=== PATIENT | male | born 1980 | race African-American/Black ===

== ENCOUNTER 2021-06-06 20:03 | Emergency (ER) | payer OTHER, MEDICARE ==
[~2021-06-06] VITALS: Ht 188 cm; Wt 73.5 kg
[2021-06-06 21:53] VITALS: BP 161/96
[2021-06-06 22:03] LABS: Basophils # (auto) 0 10 ^3/uL (0-0.2); Basophils % (auto) 0.1 % (0.0-2.0); Eosinophils # (auto) 0.1 10 ^3/uL (0-0.8); Eosinophils % (auto) 1.3 % (0.0-7.0); Hematocrit 37.5 % (41.0-53.0); Hemoglobin 13.2 g/dL (13.5-17.5); Lymphocytes # (auto) 1.6 10 ^3/uL (0.4-5.4); Lymphocytes % (auto) 25.9 % (10.0-50.0); Mean Corpuscular Hemoglobin 32.3 pg (28.0-32.0); Mean Corpuscular Hgb Conc. 35.3 g/dL (32.0-36.0); Mean Corpuscular Volume 91.5 fL (80.0-100.0); Monocytes # (auto) 0.4 10 ^3/uL (0-1.3); Neutrophils # (auto) 4.2 10 ^3/uL (1.6-8.6); Neutrophils % (auto) 66.7 % (37.0-80.0); White Blood Cell 6.3 10^3/uL (4.4-10.8)
[2021-06-06 22:20] LABS: Albumin 3.6 g/dL (3.4-5.0); Anion Gap 4 (5-15); Blood Urea Nitrogen 21 mg/dL (7-18); Calcium 8.3 mg/dL (8.5-10.1); Carbon Dioxide 25 mmol/L (21-32); Chloride 108 mmol/L (98-107); Glucose 82 mg/dL (74-106); Potassium 3.8 mmol/L (3.5-5.1); Sodium 137 mmol/L (136-145)
[2021-06-06 22:25] LABS: Alanine Aminotransferase 20 U/L (16-61); Alkaline Phosphatase 99 U/L (45-117); Aspartate Aminotransferase 20 U/L (15-37); BUN/Creatinine Ratio 15.6; Bilirubin, Total 0.4 mg/dL (0.2-1.0); GFR African American 75 mL/min; GFR Non-African American 62 mL/min
== END 2021-06-06 23:34 | disposition home or self-care (01) ==
LOC: ER 20:11
DX: F43.21 Adjustment disorder with depressed mood (principal); R20.2 Paresthesia of skin; I10 Essential (primary) hypertension
CPT/HCPCS: 36415; 70450; 71045; 80053; 83880; 84484; 85025; 93005

== ENCOUNTER 2021-09-06 23:24 | Emergency (ER) | payer OTHER, MEDICARE ==
[~2021-09-06] VITALS: Ht 185.4 cm; Wt 70.8 kg
[2021-09-07] MEDS ORDERED: ACETAMINOPHEN 500 MG TAB PO ONE
[2021-09-07 01:45] VITALS: BP 173/114
== END 2021-09-07 01:50 | disposition home or self-care (01) ==
LOC: ER 23:24
DX: I10 Essential (primary) hypertension (principal); R51.9 Headache, unspecified

== ENCOUNTER 2024-11-13 10:28 | Inpatient (IN) | payer MEDICARE, OTHER ==
[~2024-11-13] VITALS: Ht 185.4 cm; Wt 71.0 kg
[2024-11-13 11:12] LABS: Urine Bacteria None Seen /hpf (None Seen)
--- NOTE | 2024-11-13 11:12 | ED.PDOC ---
History of Present Illness HPI Comments HPI: VITALS: T:97.9 HR:104 RR:18 O2:100 BP:196/100 SOCIAL HX: DENIES TOBACCO USAGE, ETOH CONSUMPTION, OR ILLICIT DRUG USE SHX: DENIES ALL PMHX: LUPUS ALLERGIES: LISINOPRIL Ricky HPI: Poor Historian. 44-year-old male presents to the emergency department for evaluation flu-like symptoms in the last five days. Symptoms include dizziness chills nausea dry mouth chest tightness shortness of breath and insomnia. Denies any sick contacts. REVIEW OF SYSTEMS: CONSTITUTIONAL: Denies acute: fever, diaphoresis, , HEAD: Denies acute: headache, photophobia Eyes: Denies acute: Double vision, vision loss, eye pain, eye discharge. EARS: Denies acute: tinnitus, hearing loss, ear discharge, ear pain, THROAT: Denies acute: sore throat, swelling, difficulty swallowing , pain with swallowing, change in voice. NECK: Denies acute: neck pain, neck swelling, stiff neck. HEART: Denies acute : palpitations, LUNGS: Denies acute: wheezing, cough, hemoptysis ABDOMEN: Denies acute: abdominal pain, Nausea, Vomiting, diarrhea, melena , hematemesis, hematochezia SKIN: Denies acute: rash, redness, lesions, itchiness. EXTREMITIES: Denies acute: calf pain, numbness, tingling, weakness, denies pain in extremity. Denies acute: Low back pain. Neuro: Denies acute: focal neurological deficit, motor or sensory focal neurological deficit, tremors, seizure like activity, confusion, , change in mental status, loss of bowel or bladder function, cauda equina like symptoms. : Denies acute: dysuria, hematuria, flank pain, increase in urinary frequency. PSYCH: Denies acute: hallucination, suicidal ideation, homicidal ideation. PHYSICAL EXAM: General: no acute distress, awake and alert. Head: normocephalic, atraumatic. Neck: supple, trachea is midline, no swelling. Throat: Normal phonation. Eyes:, no erythema, no purulent discharge, no proptosis, no icterus. Heart: regular tachycardic, no significant murmur appreciated. Lungs: no apparent respiratory distress, Able to speak in full sentences. No wheezing, no rhonchi, no crackles. No stridors Clear to auscultation bilaterally. Abdomen: non tender to palpation, non distended, soft, no guarding, no rebound, + bowel sounds. Neuro: Awake, Alert, oriented to name, self, situation, follows commands GCS=15. Speech is normal. Skin: no petechia, no purpura, no cyanosis, non-pale, not jaundice. Lower extremities: --no - Pitting edema no deformity, no focal swelling, no calf TTP. Makes eye contact. moves all four extremities. Face: no apparent facial droop. Ambulating in the ED independently. No nystagmus. No nuchal rigidity, Kernig's sign, Brudzinski's sign, no meningeal signs. Chief Complaint: Dizziness Time Seen by MD: 10:54 Primary Care Provider: CHATA Reviewed Notes: Nurses Notes, Medications, Allergies Allergies: Coded Allergies: NO KNOWN ALLERGIES (Unverified , 09/06/21) Information Source: Patient Mode of Arrival: Ambulatory Severity: Mild Timing: Hours Duration: Since onset Prehospital treatment: None Was a procedure done? Was a procedure done?: No X-Ray, Labs, Meds, VS Vital Signs Date Time Temp Pulse Resp B/P (MAP) Pulse Ox O2 Delivery O2 Flow Rate FiO2 11/13/24 12:06 96 18 175/106 (129) 96 11/13/24 11:55 96 19 95 Room Air* 0 21 11/13/24 11:31 175/106 11/13/24 10:51 107 11/13/24 10:47 99.7 109 18 196/110 (138) 100 Lab Test 11/13/24 12:13 11/13/24 11:13 11/13/24 10:57 11/13/24 10:54 Range/Units Troponin I High Sensitivity Pending 6 </=54 ng/L White Blood Count 6.0 4.4-10.8 10^3/uL Red Blood Count 4.06 L 4.5-5.90 10^6/uL Hemoglobin 12.6 L 13.5-17.5 g/dL Hematocrit 37.4 L 41.0-53.0 % Mean Corpuscular Volume 92.2 80.0-100.0 fL Mean Corpuscular Hemoglobin 31.1 28.0-32.0 pg Mean Corpuscular Hemoglobin Concent 33.7 32.0-36.0 g/dL Red Cell Distribution Width 12.8 11.8-14.3 % Platelet Count 382 140-450 10^3/uL Mean Platelet Volume 7.0 6.9-10.8 fL Neutrophils (%) (Auto) 83.4 H 37.0-80.0 % Lymphocytes (%) (Auto) 11.1 10.0-50.0 % Monocytes (%) (Auto) 5.1 0.0-12.0 % Eosinophils (%) (Auto) 0.0 0.0-7.0 % Basophils (%) (Auto) 0.4 0.0-2.0 % Neutrophils # (Auto) 5.0 1.6-8.6 10 ^3/uL Lymphocytes # (Auto) 0.7 0.4-5.4 10 ^3/uL Monocytes # (Auto) 0.3 0-1.3 10 ^3/uL Eosinophils # (Auto) 0 0-0.8 10 ^3/uL Basophils # (Auto) 0 0-0.2 10 ^3/uL Nucleated Red Blood Cells 0.1 % D-Dimer, Quantitative 1.23 H 0.0-0.49 mg/L FEU Sodium Level 134 L 136-145 mmol/L Potassium Level 3.5 3.5-5.1 mmol/L Chloride Level 103 98-107 mmol/L Carbon Dioxide Level 23 20-31 mmol/L Anion Gap 8 5-15 Blood Urea Nitrogen 11 9-23 mg/dL Creatinine 1.40 H 0.700-1.30 mg/dL Glomerular Filtration Rate Calc 64 >90 mL/min BUN/Creatinine Ratio 7.9 L 10.0-20.0 Serum Glucose 120 H 74-106 mg/dL Lactic Acid Level 1.9 0.4-2.0 mmol/L Calcium Level 9.5 8.7-10.4 mg/dL Magnesium Level 1.9 1.6-2.6 mg/dL Total Bilirubin 0.4 0.2-1.0 mg/dL Aspartate Amino Transferase (AST) 23 13-40 U/L Alanine Aminotransferase (ALT) 16 7-40 U/L Alkaline Phosphatase 96 46-116 U/L B-Type Natriuretic Peptide 35.17 0-100 pg/mL Total Protein 9.8 H 5.7-8.2 g/dL Albumin 3.9 3.2-4.8 g/dL Thyroid Stimulating Hormone (TSH) 2.86 0.55-4.78 uIU/mL Urine Color Light-yellow Yellow Urine Clarity Clear Clear Urine pH 5.5 5.0-9.0 Urine Specific [place] 1.014 1.001-1.035 Urine Protein 1+ H Negative Urine Ketones Negative Negative Urine Blood 1+ H Negative /uL Urine Nitrite Negative Negative Urine Bilirubin Negative Negative Urine Urobilinogen Normal Negative mg/dL Urine Leukocyte Esterase Negative Negative /uL Urine RBC 1 0 - 3 /hpf Urine WBC 1 0 - 3 /hpf Urine Squamous Epithelial Cells None seen <5 /hpf Urine Bacteria None seen None Seen /hpf Urine Hyaline Casts Few 0 - 2 /lpf Urine Glucose Normal Normal mg/dL Influenza Type A Antigen Negative Negative Influenza Type B Antigen Negative Negative SARS-CoV-2 Antigen (Rapid) Negative NEGATIVE Current Medications Medications (Trade) Dose Ordered Sig/[place] Route Start Time Stop Time Status Last Admin Ondansetron HCl (Zofran) 8 mg ONCE ONCE IV 11/13/24 11:00 11/13/24 11:02 DC 11/13/24 11:24 Nitroglycerin (Ntrostat Sublingual) 0.4 mg ONCE ONCE SL 11/13/24 11:00 11/13/24 11:02 DC 11/13/24 11:31 Acetaminophen (Tylenol Tablet) 650 mg ONCE ONCE PO 11/13/24 12:00 11/13/24 12:01 DC 11/13/24 12:03 [place] [address] Ph: [phone] DIAGNOSTIC IMAGING Diagnostic Imaging Report : [id number] Signed PATIENT: AUSTIN OTOOLE ACCT: [id number] UNIT: [id number] : 1980 LOC: ER ROOM / BED: / AGE / SEX: 44 / M ADM STATUS: REG ER SERVICE 1058 ORDERING PHYSICIAN: JAYRO LEWIS DO PROCEDURE(s): CXRP - CHEST PORTABLE REASON: sob/dizzy/weak ORDER NUMBER(s): [id number], ACCESSION NUMBER(s): [id number] CHEST RADIOGRAPH Indication: sob/dizzy/weak Technique: Single frontal view of the chest was obtained COMPARISON: CHEST PORTABLE on DOS: 06/06/21 FINDINGS: Lines and Tubes: None Lungs: Clear Pleura: No effusion. No pneumothorax. Cardiomediastinal contours: Unremarkable Bones: Unremarkable IMPRESSION: 1. No acute disease. ATED BY: AUGUSTA THORNE MD DICTATED DATE/TIME: 11/13/241124 SIGNED BY: AUGUSTA THORNE MD SIGNED DATE/TIME: 11/13/241124 CC: Time of 1ST Reevaluation: 10:24 Reevaluation 1ST: Unchanged Patient Education/Counseling: Diagnosis, Treatment Family Education/Counseling: No Family Present Comments Patient presented with 44-year-old male presents to the emergency department for evaluation flu-like symptoms in the last five days. Patient was found with the above mentioned diagnosis. the following medications were ordered: NS1L, ZOFRAN, NITROGLYCERIN the following tests were ordered: EKG, CXR, LABS, Patient ED course and VS have been stabilized. Patient has been reassessed in the ED and remained in a stable condition. Pertinent incidental findings were discussed with the patient and/or family. Patient/family voices understanding and is agreeable with plan. Patient has been observed in the ED adequate length of time to insure improvement/stability. Escalation of care considered: Consideration of escalation to observation or admission Patient was ADMITTED to the medicine team for further evaluation and treatment of their presentation. All the reports of any imaging studies that were ordered by myself were reviewed by myself. Patient was noted to have abnormal EKG. He was hypertensive here in the ED not take any blood pressure medications. He has some associated chest pressure tightness. Patient has a risk factor of lupus. Departure 1 Departure Time of Disposition: 13:16 Impression: Primary Impression: Abnormal EKG Additional Impressions: Hypertension Chest pain Disposition: ADMITTED INPATIENT Admit to: Tele Condition: Guarded Additional Instructions: [address] [address] Ph: [phone] DIAGNOSTIC IMAGING Diagnostic Imaging Report : [id number] Signed PATIENT: AUSTIN OTOOLE ACCT: [id number] UNIT: [id number] : 1980 LOC: ER ROOM / BED: / AGE / SEX: 44 / M ADM STATUS: REG ER SERVICE 1058 ORDERING PHYSICIAN: JAYRO LEWIS DO PROCEDURE(s): CXRP - CHEST PORTABLE REASON: sob/dizzy/weak ORDER NUMBER(s): [id number], ACCESSION NUMBER(s): [id number] CHEST RADIOGRAPH Indication: sob/dizzy/weak Technique: Single frontal view of the chest was obtained COMPARISON: CHEST PORTABLE on DOS: 06/06/21 FINDINGS: Lines and Tubes: None Lungs: Clear Pleura: No effusion. No pneumothorax. Cardiomediastinal contours: Unremarkable Bones: Unremarkable IMPRESSION: 1. No acute disease. ATED BY: AUGUSTA THORNE MD DICTATED DATE/TIME: 11/13/241124 SIGNED BY: AUGUSTA THORNE MD SIGNED DATE/TIME: 11/13/241124 CC: Discharged With: Self Critical Care Note Critical Care Time?: No Stability Stability form required: No I personally scribed for JAYRO LEWIS DO ([email or web address]) on 11/13/24 at 11:12. Electronically submitted by Babs Larson ([email or web address]). I personally scribed for JAYRO LEWIS DO ([email or web address]) on 11/13/24 at 11:18. Electronically submitted by Babs Larson ([email or web address]). I personally scribed for JAYRO LEWIS DO ([email or web address]) on 11/13/24 at 11:31. Electronically submitted by Babs Larson ([email or web address]). I personally scribed for JAYRO LEWIS DO ([email or web address]) on 11/13/24 at 11:35. Electronically submitted by Babs Larson ([email or web address]). I personally scribed for JAYRO LEWIS DO ([email or web address]) on 11/13/24 at 11:46. El ectronically submitted by Babs Larson [email or web address]). JAYRO LEWIS DO Nov 13, 2024 11:12
[2024-11-13 11:23] LABS: Urine Blood 1+ /uL (Negative); Urine Clarity Clear (Clear); Urine Color Light-Yellow (Yellow); Urine Hyaline Cast FEW /lpf (0 - 2); Urine Protein, UAD 1+ (Negative); Urine Specific Gravity 1.014 (1.001-1.035); Urine Squamous Epithelial Cell None Seen /hpf (<5); Urine Urobilinogen Normal (Negative); Urine WBC 1 /hpf (0 - 3); Urine pH 5.5 (5.0-9.0)
[2024-11-13] MEDS: ONDANSETRON HCL 4 MG/2 ML VIAL IV ONE (11:24)
--- NOTE | 2024-11-13 11:28 | DVH ---
CHEST RADIOGRAPH Indication: sob/dizzy/weak Technique: Single frontal view of the chest was obtained COMPARISON: CHEST PORTABLE on DOS: 06/06/21 FINDINGS: Lines and Tubes: None Lungs: Clear Pleura: No effusion. No pneumothorax. Cardiomediastinal contours: Unremarkable Bones: Unremarkable IMPRESSION: 1. No acute disease.
[2024-11-13 11:30] LABS: Basophils # (auto) 0 10 ^3/uL (0-0.2); Basophils % (auto) 0.4 % (0.0-2.0); Eosinophils # (auto) 0 10 ^3/uL (0-0.8); Hematocrit 37.4 % (41.0-53.0); Hemoglobin 12.6 g/dL (13.5-17.5); Lymphocytes # (auto) 0.7 10 ^3/uL (0.4-5.4); Lymphocytes % (auto) 11.1 % (10.0-50.0); Mean Corpuscular Hemoglobin 31.1 pg (28.0-32.0); Mean Corpuscular Hgb Conc. 33.7 g/dL (32.0-36.0); Mean Corpuscular Volume 92.2 fL (80.0-100.0); Monocytes # (auto) 0.3 10 ^3/uL (0-1.3); Monocytes % (auto) 5.1 % (0.0-12.0); Neutrophils % (auto) 83.4 % (37.0-80.0); Nucleated Red Blood Cells % 0.1 %; Platelet Count (auto) 382 10^3/uL (140-450); Red Blood Cells 4.06 10^6/uL (4.5-5.90); Red Cell Distribution Width 12.8 % (11.8-14.3)
[2024-11-13] MEDS: NITROGLYCERIN 0.4 MG SL TAB SL ONE (11:31)
[2024-11-13 11:32] LABS: Rapid Influenza A Negative (Negative); Rapid Influenza B Negative (Negative)
[2024-11-13 11:34] LABS: COVID19 ANTIGEN SOFIA FIA NEGATIVE (NEGATIVE)
[2024-11-13 11:45] LABS: Alanine Aminotransferase 16 U/L (7-40); Albumin 3.9 g/dL (3.2-4.8); Alkaline Phosphatase 96 U/L (46-116); Anion Gap 8 (5-15); Aspartate Aminotransferase 23 U/L (13-40); BUN/Creatinine Ratio 7.9 (10.0-20.0); Blood Urea Nitrogen 11 mg/dL (9-23); Calcium 9.5 mg/dL (8.7-10.4); Carbon Dioxide 23 mmol/L (20-31); Chloride 103 mmol/L (98-107); Magnesium 1.9 mg/dL (1.6-2.6)
[2024-11-13 11:46] LABS: Bilirubin, Total 0.4 mg/dL (0.2-1.0)
[2024-11-13 11:55] VITALS: PULSE 96; RESP 19; O2SAT 95
[2024-11-13] MEDS: SODIUM CHLORIDE 0.9% 1,000 ML IV ONE (12:01)
[2024-11-13 12:03] LABS: Glucose 120 mg/dL (74-106); Potassium 3.5 mmol/L (3.5-5.1); Sodium 134 mmol/L (136-145); Total Protein 9.8 g/dL (5.7-8.2)
[2024-11-13] MEDS: ACETAMINOPHEN 325 MG TAB PO ONE (12:03)
[2024-11-13] MEDS: ASPirin 325 MG TAB PO ONE (14:44)
[2024-11-13] MEDS: LABETALOL HCL 20 MG/4 ML VL IV ONE ×2 (15:25→20:32)
[2024-11-13 18:30] VITALS: PULSE 85; RESP 14; O2SAT 100
[2024-11-13] MEDS ORDERED: ACETAMINOPHEN 325 MG TAB PO PRN (20:30)
[2024-11-13] MEDS ORDERED: HYDROcodone-ACET 5/325MG TAB PO PRN (20:30)
[2024-11-13] MEDS: SODIUM CHLORIDE 0.9% 1,000 ML IV SCH (20:30)
[2024-11-13] MEDS ORDERED: DOCUSATE SOD 100 MG CAP PO PRN (20:30)
[2024-11-13] MEDS ORDERED: ONDANSETRON HCL 4 MG/2 ML VIAL IV PRN (20:30)
--- NOTE | 2024-11-13 21:29 | DVH ---
EXAM: CT CHEST WITHOUT CONTRAST History: Elevated D-dimer Comparison Study: HEAD WITHOUT CONTRAST on DOS: 06/06/21 TECHNIQUE: Multidetector CT of the chest was performed. Imaging was performed without IV contrast. Ax ial, coronal, and sagittal multiplanar reformats were obtained from the axial data set by the technol ogleyda. Radiation Dose : CTDI vol 6.21 mGy, DLP 253.31 mGy*cm. Findings: Lungs: The lungs are clear. Pleura: Unremarkable Heart/Great vessels: The visualized heart is unremarkable. No cardiomegaly or pericardial effusion. Mediastinum: Unremarkable Soft tissues/Bones: Unremarkable Multiple enlarged bilateral axillary and supraclavicular nodes. Prominent retroperitoneal and retrocr ural nodes. The partially visualized upper abdomen is within normal limits. Impression: 1. No acute cardiopulmonary disease. 2. Multiple enlarged bilateral axillary and supraclavicular nodes as well as prominent retroperitonea l and retrocrural nodes are suspicious for lymphomatous involvement. The axillary nodes are amenable to tissue sampling.
--- NOTE | 2024-11-13 22:39 | DVHHP2 ---
History of Present Illness Reason for Visit: Hypertensive urgency History of Present Illness The patient is a 44-year-old male with past medical history of lupus who presented to [facility] ED with complaint of dizziness. Patient reports symptoms progressively get worse with chills, nausea, chest tightness, shortness of breath, insomnia getting worse that prompted this visit. Patient was seen and evaluated in the ED, laboratory data shows WBC 6.0, platelets 382, sodium 134, potassium 3.5, BUN 11, creatinine 1.40, GFR 64, glucose 120, BNP 35.17, troponin 7, protein 8.3, TSH 2.86, D-dimer 1.23, lactic acid 1.9, blood pressure 194/103 trending down to 132/84, heart rate 80, temperature 98.1 F, O2 saturation 99% on oxygen. Patient was given labetalol 5 mg IV x1, please see medication orders section in the computer. On my assessment, patient denied chest pain, no headache, no dizziness, no diaphoresis, no shortness of breath, no nausea, vomiting, no fever, no chills. Patient was admitted for further evaluation and medical management. Past Medical History Lupus Past Surgical History Denies all surgeries Family History Reviewed, noncontributory to the management of this case. Past Social History The patient lives at home, denies smoking, alcohol or illicit drugs abuse. Review of Systems Constitutional: Yes: Weakness; No: Fever, Chills, Sweats, Malaise, Other Eyes: No: Pain, Vision change, Conjunctivae inflammation, Eyelid inflammation, Other, Redness ENT: No: Ear pain, Ear discharge, Nose pain, Nose discharge, Nose congestion, Mouth pain, Mouth swelling, Throat pain, Throat swelling, Other Respiratory: No: Cough, Dry, Shortness of breath, SOB with excertion, Wheezing, Hemoptysis, Pleuritic Pain, Sputum, Wheezing, Other Cardiovascular: No: Chest Pain, Palpitations, Orthopnea, Paroxysmal Noc. Dyspnea, Edema, Lt Headedness, Other Gastrointestinal: No: Nausea, Vomiting, Abdominal Pain, Diarrhea, Constipation, Melena, Hematochezia, Other Genitourinary: No Dysuria, No Frequency, No Incontinence, No Hematuria, No Retention, No Other Musculoskeletal: No: other, neck pain, shoulder pain, arm pain, back pain, hand pain, leg pain, foot pain Skin: No: Rash, Lesions, Jaundice, Bruising, Other Neurological: No: Weakness, Numbness, Incoordination, Change in speech, Confusion, Seizures, Other Allergies: Coded Allergies: NO KNOWN ALLERGIES (Unverified , 09/06/21) Medications Current Medications Medications Dose Ordered Sig/[place] Route Start Time Stop Time Status Last Admin Dose Admin Aspirin 81 mg DAILY PO 11/14/24 10:00 Carvedilol 12.5 mg Q12HR PO 11/13/24 22:00 Hydralazine HCl 10 mg Q6HP PRN IV 11/13/24 20:30 Amlodipine Besylate 5 mg DAILY PO 11/14/24 10:00 Sodium Chloride 1,000 ml @ 60 mls/hr [id number] IV 11/13/24 20:30 Acetaminophen/ Hydrocodone Bitart 1 tab Q4HP PRN PO 11/13/24 20:30 Ondansetron HCl 4 mg Q4HP PRN IV 11/13/24 20:30 Docusate Sodium 100 mg BIDPRN PRN PO 11/13/24 20:30 Acetaminophen 650 mg Q6HP PRN PO 11/13/24 20:30 Exam Vital Signs Vital Signs Date Time Temp Pulse Resp B/P (MAP) Pulse Ox O2 Delivery O2 Flow Rate FiO2 11/13/24 20:32 75 183/110 11/13/24 18:30 14 100 11/13/24 18:30 Room Air* 0 21 11/13/24 14:47 98.1 General Appearance: Alert, Oriented X3, Cooperative, No acute distress HEENT: Atraumatic, PERRLA, EOMI, Mucous membr. moist/pink Respiratory: Clear to auscultation, Normal air movement Cardiovascular: Regular rate, Normal S1, Normal S2, No murmurs, Gallops Abdominal: Normal bowel sounds, Soft, No tenderness, No hepatospenomegaly, No masses Extremities: No clubbing, No cyanosis, No edema, Normal pulses, No tenderness/swelling Skin: No rashes, No breakdown, No significant lesion Neuro: Normal speech, Normal tone, Sensation intact, Cranial nerves 3-12 NL, Reflexes 2+ Psych/Mental Status: Mental status NL, Mood NL Labs/Xrays Labs Test 11/13/24 14:42 11/13/24 11:13 11/13/24 10:57 11/13/24 10:54 Range/Units Troponin I High Sensitivity 7 </=54 ng/L White Blood Count 6.0 4.4-10.8 10^3/uL Red Blood Count 4.06 L 4.5-5.90 10^6/uL Hemoglobin 12.6 L 13.5-17.5 g/dL Hematocrit 37.4 L 41.0-53.0 % Mean Corpuscular Volume 92.2 80.0-100.0 fL Mean Corpuscular Hemoglobin 31.1 28.0-32.0 pg Mean Corpuscular Hemoglobin Concent 33.7 32.0-36.0 g/dL Red Cell Distribution Width 12.8 11.8-14.3 % Platelet Count 382 140-450 10^3/uL Mean Platelet Volume 7.0 6.9-10.8 fL Neutrophils (%) (Auto) 83.4 H 37.0-80.0 % Lymphocytes (%) (Auto) 11.1 10.0-50.0 % Monocytes (%) (Auto) 5.1 0.0-12.0 % Eosinophils (%) (Auto) 0.0 0.0-7.0 % Basophils (%) (Auto) 0.4 0.0-2.0 % Neutrophils # (Auto) 5.0 1.6-8.6 10 ^3/uL Lymphocytes # (Auto) 0.7 0.4-5.4 10 ^3/uL Monocytes # (Auto) 0.3 0-1.3 10 ^3/uL Eosinophils # (Auto) 0 0-0.8 10 ^3/uL Basophils # (Auto) 0 0-0.2 10 ^3/uL Nucleated Red Blood Cells 0.1 % D-Dimer, Quantitative 1.23 H 0.0-0.49 mg/L FEU Sodium Level 134 L 136-145 mmol/L Potassium Level 3.5 3.5-5.1 mmol/L Chloride Level 103 98-107 mmol/L Carbon Dioxide Level 23 20-31 mmol/L Anion Gap 8 5-15 Blood Urea Nitrogen 11 9-23 mg/dL Creatinine 1.40 H 0.700-1.30 mg/dL Glomerular Filtration Rate Calc 64 >90 mL/min BUN/Creatinine Ratio 7.9 L 10.0-20.0 Serum Glucose 120 H 74-106 mg/dL Lactic Acid Level 1.9 0.4-2.0 mmol/L Calcium Level 9.5 8.7-10.4 mg/dL Magnesium Level 1.9 1.6-2.6 mg/dL Total Bilirubin 0.4 0.2-1.0 mg/dL Aspartate Amino Transferase (AST) 23 13-40 U/L Alanine Aminotransferase (ALT) 16 7-40 U/L Alkaline Phosphatase 96 46-116 U/L B-Type Natriuretic Peptide 35.17 0-100 pg/mL Total Protein 9.8 H 5.7-8.2 g/dL Albumin 3.9 3.2-4.8 g/dL Thyroid Stimulating Hormone (TSH) 2.86 0.55-4.78 uIU/mL Urine Color Light-yellow Yellow Urine Clarity Clear Clear Urine pH 5.5 5.0-9.0 Urine Specific [place] 1.014 1.001-1.035 Urine Protein 1+ H Negative Urine Ketones Negative Negative Urine Blood 1+ H Negative /uL Urine Nitrite Negative Negative Urine Bilirubin Negative Negative Urine Urobilinogen Normal Negative mg/dL Urine Leukocyte Esterase Negative Negative /uL Urine RBC 1 0 - 3 /hpf Urine WBC 1 0 - 3 /hpf Urine Squamous Epithelial Cells None seen <5 /hpf Urine Bacteria None seen None Seen /hpf Urine Hyaline Casts Few 0 - 2 /lpf Urine Glucose Normal Normal mg/dL Influenza Type A Antigen Negative Negative Influenza Type B Antigen Negative Negative SARS-CoV-2 Antigen (Rapid) Negative NEGATIVE PATIENT: AUSTIN OTOOLE ACCT: [id number] UNIT: [id number] : 1980 LOC: ER ROOM / BED: / AGE / SEX: 44 / M ADM STATUS: REG ER SERVICE 19 ORDERING PHYSICIAN: ISSA HEIN DNP PROCEDURE(s): CX2CT - CHEST WITHOUT CONTRAST REASON: Elevated D-dimer ORDER NUMBER(s): [id number], ACCESSION NUMBER(s): [id number] EXAM: CT CHEST WITHOUT CONTRAST History: Elevated D-dimer Comparison Study: HEAD WITHOUT CONTRAST on DOS: 06/06/21 TECHNIQUE: Multidetector CT of the chest was performed. Imaging was performed without IV contrast. Axial, coronal, and sagittal multiplanar reformats were obtained from the axial data set by the technologist. Radiation Dose : CTDI vol 6.21 mGy, DLP 253.31 mGy*cm. Findings: Lungs: The lungs are clear. Pleura: Unremarkable Heart/Great vessels: The visualized heart is unremarkable. No cardiomegaly or pericardial effusion. Mediastinum: Unremarkable Soft tissues/Bones: Unremarkable Multiple enlarged bilateral axillary and supraclavicular nodes. Prominent retroperitoneal and retrocrural nodes. The partially visualized upper abdomen is within normal limits. Impression: 1. No acute cardiopulmonary disease. 2. Multiple enlarged bilateral axillary and supraclavicular nodes as well as prominent retroperitoneal and retrocrural nodes are suspicious for lymphomatous involvement. The axillary nodes are amenable to tissue sampling. ORDERING PHYSICIAN: JAYRO LEWIS DO PROCEDURE(s): CXRP - CHEST PORTABLE REASON: sob/dizzy/weak ORDER NUMBER(s): [id number], ACCESSION NUMBER(s): [id number] CHEST RADIOGRAPH Indication: sob/dizzy/weak Technique: Single frontal view of the chest was obtained COMPARISON: CHEST PORTABLE on DOS: 06/06/21 FINDINGS: Lines and Tubes: None Lungs: Clear Pleura: No effusion. No pneumothorax. Cardiomediastinal contours: Unremarkable Bones: Unremarkable IMPRESSION: 1. No acute disease. Assessment/Plan Assessment/Plan Chest pain Elevated D-dimer Hyponatremia Hypertensive urgency Plan 1. Admit to telemetry unit 2. Breathing treatment 3. Pain control management 4. Management of fluids and electrolytes 5. Consultation for hospitalist 6. Diagnostic tests chest CT 7. DVT prophylaxis-on aspirin 8. Repeat labs CBC, CMP in a.m. 9. Continue with current medical management 10. Treatment plan discussed with patient and RN. Patient verbalized understanding. Plan discussed with: Patient, Other (RN) My Orders Orders - ISSA HEIN DNP Procedure Category Date Status Time Aspirin Tablet PHA 11/14/24 In Process 10:00 Carvedilol Tablet PHA 11/13/24 In Process (Coreg Tablet) 22:00 Hydralazine Injection PHA 11/13/24 In Process (Apresoline Inject 20:30 Amlodipine Tablet PHA 11/14/24 In Process (Norvasc Tablet) 10:[address] 11/13/24 Resulted 20:20 Allergies JOSUÉ 11/13/24 In Process 20:20 Code Status CODE 11/13/24 Transmitted 20:20 Sodium Chloride 0.9% PHA 11/13/24 In Process 20:30 Oxygen Per Hour RT 11/13/24 Transmitted 20:20 Hydrocodone-Acet PHA 11/13/24 In Process 5/325mg Tab ([place] 20:30 Ondansetron Hcl PHA 11/13/24 In Process (Zofran) 20:30 Docusate Sodium PHA 11/13/24 In Process Capsule (Colace 20:30 Complete Blood Count LAB 11/14/24 Verified 04:00 Comprehensive LAB 11/14/24 Verified Metabolic Panel 04:00 Cardiac DIET 11/14/24 Transmitted Diet-2gna,Lofat,Lochol Breakfast Condition: Serious JOSUÉ 11/13/24 In Process 20:20 Acetaminophen Tablet PHA 11/13/24 In Process (Tylenol Tablet) 20:30 Bedrest With Bathroom JOSUÉ 11/13/24 In Process Privileg 20:20 Sequential JOSUÉ 11/13/24 In Process Compression Device Admit ADMIT 11/13/24 Transmitted 22:38 Nitroglycerin PHA 11/13/24 Transmitted Sublingual (Ntrostat 22:45 Morphine Sulfate PHA 11/13/24 Transmitted Injection 22:45 Notify Md Of Changes JOSUÉ 11/13/24 Transmitted From Base 22:38 Manager [employer] For JOSUÉ 11/13/24 Transmitted 24 Hours 22:38 Emergency Dysrhythmia JOSUÉ 11/13/24 Transmitted Protocol 22:38 Rhythm Strips Once JOSUÉ 11/13/24 Transmitted Every Shift 22:38 Oxygen By Nasal RT 11/13/24 Transmitted Cannula 22:38 Problem List: (1) Chest pain (2) Elevated d-dimer (3) Hyponatremia (4) Hypertensive urgency Date of Service: Nov 13, 2024 Billing Provider: ISSA HEIN DNP Common Visit Codes: [id number] INP/OBS CARE (HIGH) ISSA HEIN DNP Nov 13, 2024 22:39
[2024-11-13] MEDS ORDERED: MORPHINE SULFATE INJ 2 MG/ml SYRG IV PRN (22:45)
[2024-11-13] MEDS ORDERED: NITROGLYCERIN 0.4 MG SL TAB SL PRN (22:45)
[2024-11-13] MEDS: amLODIPine BESYLATE 5 MG TAB PO ONE (23:23)
[2024-11-13] MEDS: CARVEDILOL 12.5 MG TAB PO SCH (23:24)
[2024-11-13 23:30] VITALS: O2SAT 100
[2024-11-14 05:42] LABS: Basophils # (auto) 0 10 ^3/uL (0-0.2); Basophils % (auto) 0.2 % (0.0-2.0); Eosinophils # (auto) 0.1 10 ^3/uL (0-0.8); Eosinophils % (auto) 1.2 % (0.0-7.0); Hematocrit 34.4 % (41.0-53.0); Hemoglobin 11.7 g/dL (13.5-17.5); Lymphocytes # (auto) 0.9 10 ^3/uL (0.4-5.4); Lymphocytes % (auto) 16.3 % (10.0-50.0); Mean Corpuscular Hemoglobin 31.3 pg (28.0-32.0); Monocytes # (auto) 0.4 10 ^3/uL (0-1.3); Monocytes % (auto) 7.4 % (0.0-12.0); Neutrophils # (auto) 4.1 10 ^3/uL (1.6-8.6); Neutrophils % (auto) 74.9 % (37.0-80.0); Nucleated Red Blood Cells % 0.1 %; Platelet Count (auto) 342 10^3/uL (140-450); Red Blood Cells 3.74 10^6/uL (4.5-5.90); Red Cell Distribution Width 12.7 % (11.8-14.3); White Blood Cell 5.5 10^3/uL (4.4-10.8)
[2024-11-14 06:15] LABS: Alanine Aminotransferase 14 U/L (7-40); Albumin 3.3 g/dL (3.2-4.8); Alkaline Phosphatase 80 U/L (46-116); Anion Gap 6 (5-15); Aspartate Aminotransferase 21 U/L (13-40); BUN/Creatinine Ratio 6.3 (10.0-20.0); Calcium 9.3 mg/dL (8.7-10.4); Carbon Dioxide 26 mmol/L (20-31); Chloride 104 mmol/L (98-107); Glucose 95 mg/dL (74-106); Potassium 4.3 mmol/L (3.5-5.1)
[2024-11-14 06:16] LABS: Bilirubin, Total 0.5 mg/dL (0.2-1.0)
[2024-11-14 06:33] LABS: Blood Urea Nitrogen 9 mg/dL (9-23); Sodium 136 mmol/L (136-145); Total Protein 8.3 g/dL (5.7-8.2)
[2024-11-14] MEDS: hydrALAZINE HCL 20 MG/ML VL IV PRN (07:42)
[2024-11-14] MEDS ORDERED: amLODIPine BESYLATE 5 MG TAB PO ONE (09:15)
[2024-11-14 09:59] VITALS: PULSE 99; RESP 16; O2SAT 100
[2024-11-14] MEDS ORDERED: ASPirin 81 mg TAB PO SCH (10:00)
[2024-11-14] MEDS ORDERED: amLODIPine BESYLATE 5 MG TAB PO SCH (10:00)
[2024-11-14 10:01] VITALS: BP 188/111; PULSE 97; RESP 16; TEMP 98; O2SAT 100
[2024-11-14] MEDS ORDERED: LABETALOL HCL 5 MG/ML ML 20ML VIAL IV ONE (10:15)
[2024-11-14] MEDS ORDERED: LORazepam 2MG/ML-1ML VIAL IM ONE (10:30)
[2024-11-14] MEDS ORDERED: LORazepam 2MG/ML-1ML VIAL IV PRN (10:30)
--- NOTE | 2024-11-14 14:45 | DVHDSRES ---
Discharge Summary Date of Admission Resident Creating Document: JAMES CLARK RESIDENT Nov 13, 2024 at 22:38 Date of Discharge: Nov 14, 2024 Admitting Diagnosis Hypertensive emergency Labs/Diagnostic Data: Laboratory Results Test 11/14/24 05:02 11/13/24 14:42 11/13/24 11:13 11/13/24 10:57 White Blood Count 5.5 10^3/uL (4.4-10.8) Red Blood Count 3.74 10^6/uL (4.5-5.90) Hemoglobin 11.7 g/dL (13.5-17.5) Hematocrit 34.4 % (41.0-53.0) Mean Corpuscular Volume 92.0 fL (80.0-100.0) Mean Corpuscular Hemoglobin 31.3 pg (28.0-32.0) Mean Corpuscular Hemoglobin Concent 34.0 g/dL (32.0-36.0) Red Cell Distribution Width 12.7 % (11.8-14.3) Platelet Count 342 10^3/uL (140-450) Mean Platelet Volume 7.0 fL (6.9-10.8) Neutrophils (%) (Auto) 74.9 % (37.0-80.0) Lymphocytes (%) (Auto) 16.3 % (10.0-50.0) Monocytes (%) (Auto) 7.4 % (0.0-12.0) Eosinophils (%) (Auto) 1.2 % (0.0-7.0) Basophils (%) (Auto) 0.2 % (0.0-2.0) Neutrophils # (Auto) 4.1 10 ^3/uL (1.6-8.6) Lymphocytes # (Auto) 0.9 10 ^3/uL (0.4-5.4) Monocytes # (Auto) 0.4 10 ^3/uL (0-1.3) Eosinophils # (Auto) 0.1 10 ^3/uL (0-0.8) Basophils # (Auto) 0 10 ^3/uL (0-0.2) Nucleated Red Blood Cells 0.1 % Sodium Level 136 mmol/L (136-145) Potassium Level 4.3 mmol/L (3.5-5.1) Chloride Level 104 mmol/L (98-107) Carbon Dioxide Level 26 mmol/L (20-31) Anion Gap 6 (5-15) Blood Urea Nitrogen 9 mg/dL (9-23) Creatinine 1.44 mg/dL (0.700-1.30) Glomerular Filtration Rate Calc 61 mL/min (>90) BUN/Creatinine Ratio 6.3 (10.0-20.0) Serum Glucose 95 mg/dL (74-106) Calcium Level 9.3 mg/dL (8.7-10.4) Total Bilirubin 0.5 mg/dL (0.2-1.0) Aspartate Amino Transferase (AST) 21 U/L (13-40) Alanine Aminotransferase (ALT) 14 U/L (7-40) Alkaline Phosphatase 80 U/L (46-116) Total Protein 8.3 g/dL (5.7-8.2) Albumin 3.3 g/dL (3.2-4.8) Troponin I High Sensitivity 7 ng/L (</=54) D-Dimer, Quantitative 1.23 mg/L FEU (0.0-0.49) Lactic Acid Level 1.9 mmol/L (0.4-2.0) Magnesium Level 1.9 mg/dL (1.6-2.6) B-Type Natriuretic Peptide 35.17 pg/mL (0-100) Thyroid Stimulating Hormone (TSH) 2.86 uIU/mL (0.55-4.78) Urine Color Light-yellow (Yellow) Urine Clarity Clear (Clear) Urine pH 5.5 (5.0-9.0) Urine Specific [place] 1.014 (1.001-1.035) Urine Protein 1+ (Negative) Urine Ketones Negative (Negative) Urine Blood 1+ /uL (Negative) Urine Nitrite Negative (Negative) Urine Bilirubin Negative (Negative) Urine Urobilinogen Normal mg/dL (Negative) Urine Leukocyte Esterase Negative /uL (Negative) Urine RBC 1 /hpf (0 - 3) Urine WBC 1 /hpf (0 - 3) Urine Squamous Epithelial Cells None seen /hpf (<5) Urine Bacteria None seen /hpf (None Seen) Urine Hyaline Casts Few /lpf (0 - 2) Urine Glucose Normal mg/dL (Normal) Test 11/13/24 10:54 Influenza Type A Antigen Negative (Negative) Influenza Type B Antigen Negative (Negative) SARS-CoV-2 Antigen (Rapid) Negative (NEGATIVE) Other Laboratory Tests 11/14/24 05:02 Brief Hx & Hospital Course: Patient is 44 years old male with past medical history of lupus, hypertension came with a complaint of dizziness, chest compression and shortness of breaths. Patient also reported some dry mouth insomnia. On admission blood pressure was 196/110. Troponin I with a normal limit, BNP 35.1, elevated serum creatinine 1.40. CXR- No acute disease. URINALYSIS NEGATIVE FOR UTI. Patient tested Negative for COVID-19 and influenza type A and B. CT head revealed- Multiple enlarged bilateral axillary and supraclavicular nodes as well as prominent retroperitoneal and retrocrural nodes are suspicious for lymphomatous involvement. The axillary nodes are amenable to tissue sampling.Patient was initially treated with antihypertensive medication. Patient was treated with IV labetalol and oral amlodipine. Patient left AMA. Patient was counseled about the effect of not being compliant with the treatment and patient verbalized understanding. Patient left AMA. Patient's medical condition on discharge was undetermined. Operations or Procedures Diagnostic Imaging Report : [id number] Signed PATIENT: AUSTIN OTOOLE ACCT: [id number] UNIT: [id number] : 1980 LOC: ER ROOM / BED: / AGE / SEX: 44 / M ADM STATUS: REG ER SERVICE 1058 ORDERING PHYSICIAN: JAYRO LEWIS DO PROCEDURE(s): CXRP - CHEST PORTABLE REASON: sob/dizzy/weak ORDER NUMBER(s): [id number], ACCESSION NUMBER(s): [id number] CHEST RADIOGRAPH Indication: sob/dizzy/weak Technique: Single frontal view of the chest was obtained COMPARISON: CHEST PORTABLE on DOS: 06/06/21 FINDINGS: Lines and Tubes: None Lungs: Clear Pleura: No effusion. No pneumothorax. Cardiomediastinal contours: Unremarkable Bones: Unremarkable IMPRESSION: 1. No acute disease. ATED BY: AUGUSTA THORNE MD DICTATED DATE/TIME: 11/13/241124 SIGNED BY: AUGUSTA THORNE MD SIGNED DATE/TIME: 11/13/241124 CC: [place] [id number] Ph: [phone] DIAGNOSTIC IMAGING Diagnostic Imaging Report : [id number] Signed PATIENT: AUSTIN OTOOLE ACCT: [id number] UNIT: [id number] : 1980 LOC: ER ROOM / BED: / AGE / SEX: 44 / M ADM STATUS: REG ER SERVICE 19 ORDERING PHYSICIAN: ISSA HEIN DNP PROCEDURE(s): CX2CT - CHEST WITHOUT CONTRAST REASON: Elevated D-dimer ORDER NUMBER(s): [id number], ACCESSION NUMBER(s): [id number] EXAM: CT CHEST WITHOUT CONTRAST History: Elevated D-dimer Comparison Study: HEAD WITHOUT CONTRAST on DOS: 06/06/21 TECHNIQUE: Multidetector CT of the chest was performed. Imaging was performed without IV contrast. Axial, coronal, and sagittal multiplanar reformats were obtained from the axial data set by the technologist. Radiation Dose : CTDI vol 6.21 mGy, DLP 253.31 mGy*cm. Findings: Lungs: The lungs are clear. Pleura: Unremarkable Heart/Great vessels: The visualized heart is unremarkable. No cardiomegaly or pericardial effusion. Mediastinum: Unremarkable Soft tissues/Bones: Unremarkable Multiple enlarged bilateral axillary and supraclavicular nodes. Prominent retroperitoneal and retrocrural nodes. The partially visualized upper abdomen is within normal limits. Impression: 1. No acute cardiopulmonary disease. 2. Multiple enlarged bilateral axillary and supraclavicular nodes as well as prominent retroperitoneal and retrocrural nodes are suspicious for lymphomatous involvement. The axillary nodes are amenable to tissue sampling. ATED BY: NIESHA RUANO DO DICTATED DATE/TIME: 11/13/242125 SIGNED BY: NIESHA RUANO DO SIGNED DATE/TIME: 11/13/242125 CC: Condition at Discharge: Undetermined Final Diagnosis/Problems List Hypertensive emergency TIFFANY likely due to VMN History of lupus Multiple enlarged bilateral axillary and supraclavicular nodes as well as prominent retroperitoneal and retrocrural nodes are suspicious for lymphomatous involvement. Discharge Disposition: AMA Discharge Statement: "Patient was advised to return to the ER or call 911 if any headaches, dizziness, shortness of breath, chest pain, abdominal pain, bleeding, fevers, or worsening of medical condition. Patient was counseled about treatment plan, medications, possible side effects, patientverbalized understanding. All questions were answered to the best of my ability. This discharge took greater then 30 minutes in planning, reviewing documentation, counseling the patient, and discussing with other team members." ASSESSMENT ASSESSMENT Assessment Date of Service: Nov 14, 2024 Billing Provider: GHULAM SHIN MD Common Visit Codes: 82842-VYO/OBS DISCH DAY >30min JAMES CLARK RESIDENT Nov 14, 2024 14:45 GHULAM SHIN MD Nov 15, 2024 08:57
== END 2024-11-14 10:33 | disposition left against medical advice (07) | DRG 304 ==
LOC: ER 10:28 → TELE 22:38
PROVIDERS: ADMIT Nurse Practitioner Family; ATTEND Nurse Practitioner Family
DX: I16.1 Hypertensive emergency (principal); N17.0 Acute kidney failure with tubular necrosis; E87.1 Hypo-osmolality and hyponatremia; Z20.822 Contact with and (suspected) exposure to COVID-19; Z53.29 Procedure and treatment not carried out because of patient's decision for other reasons
CPT/HCPCS: 36415; 71045; 71250; 80053; 81001; 83605; 83735; 83880; 84443; 84484; 85025; 85379; 87040; 87426; 87804; 96374; 96375; 96376; G0378; J2405